=== PATIENT | male | born 1980 | race Caucasian/White ===

== ENCOUNTER 2019-04-09 22:04 | Emergency (ER) | payer BC ==
[~2019-04-09] VITALS: Ht 180.3 cm; Wt 108.9 kg
[~2019-04-09 22:04] MED LIST: AMLO5TAB10 PO; ATOR20TA58 PO; HYDR12.58 PO; LISI10TA2 PO; METO50TA29 PO
[2019-04-09] MEDS ORDERED: fentaNYL PF VIAL 100 MCG/2 ML VIAL IVP ONE ×2 (22:30→23:30)
[2019-04-09] MEDS ORDERED: ONDANSETRON PF 4 MG/2 ML VIAL. IV ONE (22:30)
--- NOTE | 2019-04-09 22:34 | PHYS DOC ---
Past Medical History Past Medical History: High Cholesterol, Hypertension, Other Additional Past Medical Histor: ALCOHOL ABUSE, Past Surgical History: No Surgical History Alcohol Use: Heavy Drug Use: None Adult General Chief Complaint Chief Complaint: MECHANICAL FALL HPI HPI Patient is a 38-year-old male who presents after a ground-level fall at home. Patient was carrying a water troughs and lost his balance, tripped and fell into bathtub, landing on his right arm. Patient now complains of pain that radiates from his right shoulder down through his elbow and just below the elbow. He rates pain as severe. He states the pain is worsened if he tries to move the right arm. He denies any chest pain or shortness of breath. He states that nothing improves the pain. Injury occurred just prior to arrival.[] Review of Systems Review of Systems Constitutional: Denies fever or chills [] Respiratory: Denies cough or shortness of breath [] Cardiovascular: No additional information not addressed in HPI [] GI: Denies abdominal pain, nausea, vomiting or diarrhea [] Musculoskeletal: Complains of right shoulder and arm pain [] Integument: Denies rash or skin lesions [] Neurologic: Denies headache, focal weakness or sensory changes [] All other systems were reviewed and found to be within normal limits, except as documented in this note. Current Medications Current Medications Current Medications Medications (Trade) Dose Ordered Sig/Eriberto Start Time Stop Time Status Last Admin Dose Admin Fentanyl Citrate (Fentanyl 2ml Vial) 50 mcg 1X ONCE 04/09/19 23:30 04/09/19 23:31 DC 04/09/19 23:25 50 MCG Ondansetron HCl (Zofran) 4 mg 1X ONCE 04/09/19 22:30 04/09/19 22:31 DC 04/09/19 22:25 4 MG Allergies Allergies Allergies Coded Allergies Type Severity Reaction Last Updated Verified No Known Drug Allergies 09/27/14 No Physical Exam Physical Exam Constitutional: Well developed, well nourished, no acute distress, non-toxic appearance. [] HENT: Normocephalic, atraumatic, bilateral external ears normal, oropharynx moist, no oral exudates, nose normal. [] Eyes: PERRLA, EOMI, conjunctiva normal, no discharge. [] Neck: Normal range of motion, no tenderness, supple, no stridor. [] Cardiovascular: Regular rate and rhythm[] Lungs & Thorax: Bilateral breath sounds clear to auscultation [] Abdomen: Bowel sounds normal, soft, no tenderness. [] Skin: Warm, dry, no erythema, no rash. [] Extremities: Right upper extremity demonstrates diffuse tenderness to palpation from the shoulder through the elbow with decreased range of motion due to pain. No obvious deformity noted on exam. [] Neurologic: Alert and oriented X 3, no focal deficits noted. [] Current Patient Data Vital Signs Vital Signs Date Time Temp Pulse Resp B/P (MAP) Pulse Ox O2 Delivery O2 Flow Rate FiO2 04/09/19 23:25 97 Room Air 04/09/19 22:32 97.8 109 18 123/85 (98) 97.8 EKG EKG [] Radiology/Procedures Radiology/Procedures [] Impressions: PROCEDURE: ELBOW RIGHT 3V Left shoulder 3 views: Reason for examination: Fell. No fracture or dislocation is seen. The bone density is normal. No abnormal periosteal reaction is seen. Joint spaces are maintained. IMPRESSION: No acute bony abnormality at the right shoulder. Right forearm 2 views: There is a linear lucency seen on lateral projection only and probably associated with the coronoid process of the ulna. No other site of fracture seen. Joint spaces are maintained. There does appear to be a joint effusion at the elbow. Distal radius and ulnar appear to be intact no gross bony abnormality seen at the wrist joint. IMPRESSION: Linear lucency suspicious of fracture seen proximally in the region of the coronoid process of the ulna with joint effusion. Right humerus 2 views: No fracture seen at the humerus. Bone density is normal. No abnormal periosteal reaction is seen. Shoulder and elbow joint spaces are maintained. IMPRESSION: No acute bony abnormality seen at the humerus. Right elbow 3 views: There is a fracture at the coronoid process of the ulna. The radial head and distal humerus appear to be intact. Joint space is maintained. IMPRESSION: Fracture at the coronoid process of the proximal ulna. Joint effusion. Electronically signed by: Lizette Keys MD (04/09/2019 11:23 PM) [id number] DICTATED and SIGNED BY: LIZETTE KEYS MD DATE: 04/09/19 2322 Course & Med Decision Making Course & Med Decision Making Pertinent Labs and Imaging studies reviewed. (See chart for details) Results of imaging studies reviewed with patient and family. Patient placed in a long-arm posterior splint by ER medic and patient reevaluated post splinting. Good fit and alignment are noted with excellent capillary refill. Patient placed in right arm sling. Dragon Disclaimer Dragon Disclaimer This electronic medical record was generated, in whole or in part, using a voice recognition dictation system. Departure Departure Impression: Primary Impression: Fracture of coronoid process of right ulna Disposition: HOME, SELF-CARE Condition: STABLE Referrals: SHERIE HERNANDEZ MD (PCP) PATTIE CARRILLO MD Patient Instructions: Elbow Fracture, Simple Scripts Naproxen (NAPROSYN) 500 Mg Tablet 1 TAB PO BID PRN for PAIN, #20 TAB 0 Refills Prov: SIMONE ZAUZETA Jr. DO 04/10/19 Hydrocodone/Apap 5-325 (NORCO 5-325 TABLET) 1 Each Tablet 1-2 EACH PO PRN Q6HRS PRN for PAIN, #15 as needed for pain Prov: SIMONE ZAZUETA Jr. DO 04/10/19 Problem Qualifiers Primary Impression: Fracture of coronoid process of right ulna Encounter type: initial encounter Fracture type: closed Fracture alignment: nondisplaced Qualified Codes: S52.044A - Nondisplaced fracture of coronoid process of right ulna, initial encounter for closed fracture SIMONE ZAZUETA Jr. DO Apr 09, 2019 22:34
--- NOTE | 2019-04-09 23:27 | RAD ---
Left shoulder 3 views: Reason for examination: Fell. No fracture or dislocation is seen. The bone density is normal. No abnormal periosteal reaction is seen. Joint spaces are maintained. IMPRESSION: No acute bony abnormality at the right shoulder. Right forearm 2 views: There is a linear lucency seen on lateral projection only and probably associated with the coronoid process of the ulna. No other site of fracture seen. Joint spaces are maintained. There does appear to be a joint effusion at the elbow. Distal radius and ulnar appear to be intact no gross bony abnormality seen at the wrist joint. IMPRESSION: Linear lucency suspicious of fracture seen proximally in the region of the coronoid process of the ulna with joint effusion. Right humerus 2 views: No fracture seen at the humerus. Bone density is normal. No abnormal periosteal reaction is seen. Shoulder and elbow joint spaces are maintained. IMPRESSION: No acute bony abnormality seen at the humerus. Right elbow 3 views: There is a fracture at the coronoid process of the ulna. The radial head and distal humerus appear to be intact. Joint space is maintained. IMPRESSION: Fracture at the coronoid process of the proximal ulna. Joint effusion. Electronically signed by: Lizette Nieto MD (04/09/2019 11:23 PM) [id number]
[2019-04-10] MEDS ORDERED: HYDR-3164 PO (00:29)
[2019-04-10] MEDS ORDERED: NAPR-683 PO (00:29)
[2019-04-10] MEDS ORDERED: fentaNYL PF VIAL 100 MCG/2 ML VIAL IVP ONE (01:00)
[2019-04-10 01:13] VITALS: BP 109/68
== END 2019-04-10 01:25 | disposition home or self-care (01) ==
LOC: ER 22:04
DX: E78.00 Pure hypercholesterolemia, unspecified (principal); S52.044A Nondisplaced fracture of coronoid process of right ulna, initial encounter for closed fracture; I10 Essential (primary) hypertension; F10.20 Alcohol dependence, uncomplicated; Y90.9 Presence of alcohol in blood, level not specified; W18.2XXA Fall in (into) shower or empty bathtub, initial encounter; Y93.89 Activity, other specified; Y92.009 Unspecified place in unspecified non-institutional (private) residence as the place of occurrence of the external cause; Y99.8 Other external cause status
CPT/HCPCS: 73030; 73060; 73080; 73090; 96374; 96375; 96376; 99284; J2405; J3010

== ENCOUNTER 2019-08-12 12:32 | Emergency (ER) | payer BC ==
[~2019-08-12] VITALS: Ht 180.3 cm; Wt 110.0 kg
[~2019-08-12 12:32] MED LIST changes: +HYDR-3164 PO; +NAPR-683 PO
[2019-08-12 13:30] VITALS: BP 169/98
[2019-08-12] MEDS ORDERED: HYDROcodone/APAP 5/325MG 1 TAB TABLET PO ONE (14:15)
[2019-08-12] MEDS ORDERED: ORPHENADRINE CITRATE 60 MG/2 ML VIAL. IM ONE (14:15)
--- NOTE | 2019-08-12 14:16 | PHYS DOC ---
Past Medical History Past Medical History: Hypertension Additional Past Medical Histor: ALCOHOL ABUSE, Past Surgical History: No Surgical History Smoking Status: Current Every Day Smoker Alcohol Use: Occasionally Drug Use: None Adult General Chief Complaint Chief Complaint: KNEE INJURY HPI HPI Patient is a 39 year old male who presents with states he tripped and fell in his house last night and landed on his right knee. Patient has anterior right knee pain only. Patient rates pain 10 out 10 and states he has not taken anything for the pain. Review of Systems Review of Systems Musculoskeletal: Denies back pain. Right knee joint pain [] All other systems were reviewed and found to be within normal limits, except as documented in this note. Current Medications Current Medications Current Medications Medications (Trade) Dose Ordered Sig/Eriberto Start Time Stop Time Status Last Admin Dose Admin Acetaminophen/ Hydrocodone Bitart (Lortab 5/325) 1 tab 1X ONCE 08/12/19 14:15 08/12/19 14:17 DC 08/12/19 14:21 1 TAB Orphenadrine Citrate (Norflex) 60 mg 1X ONCE 08/12/19 14:15 08/12/19 14:17 DC 08/12/19 14:21 60 MG Allergies Allergies Allergies Coded Allergies Type Severity Reaction Last Updated Verified tramadol Allergy Unknown 08/12/19 Yes Physical Exam Physical Exam Constitutional: Well developed, well nourished, no acute distress, non-toxic appearance. [] HENT: Normocephalic, atraumatic, bilateral external ears normal, oropharynx moist, no oral exudates, nose normal. [] Eyes: PERRLA, EOMI, conjunctiva normal, no discharge. [] Neck: Normal range of motion, no tenderness, supple, no stridor. [] Cardiovascular:Heart rate regular rhythm, no murmur [] Lungs & Thorax: Bilateral breath sounds clear to auscultation [] Abdomen: Bowel sounds normal, soft, no tenderness, no masses, no pulsatile mass es. [] Skin: Warm, dry, no erythema, no rash. [] Back: No tenderness, no CVA tenderness. [] Extremities: right knee tenderness, no cyanosis, no clubbing, right knee ROM limiteddue to pain, no edema. [] Neurologic: Alert and oriented X 3, normal motor function, normal sensory function, no focal deficits noted. [] Psychologic: Affect normal, judgement normal, mood normal. [] Current Patient Data Vital Signs Vital Signs Date Time Temp Pulse Resp B/P (MAP) Pulse Ox O2 Delivery O2 Flow Rate FiO2 08/12/19 14:21 20 99 Room Air 08/12/19 13:30 98.1 92 169/98 (121) 98.1 EKG EKG [] Radiology/Procedures Radiology/Procedures [] Impressions: [facility] [address] [place] [address] IMAGING REPORT Signed PATIENT: PATTIE RUGGIERO ACCOUNT: [id number] : 1980 LOCATION: ER AGE: 39 SEX: M EXAM STATUS: REG ER ORD. PHYSICIAN: MATIAS CUENCA APRN REASON: fall,PT STATES FELL LAST NIGHT LANDING ON KNEE, PAINFUL TO AMBULATE PROCEDURE: KNEE RIGHT 4V Right knee 4 views. HISTORY: Fall, pain right knee, mild pain to ambulate 4 views were taken of the right knee. There is not evidence of an acute fracture or osseous abnormality. There is no joint effusion. IMPRESSION: 1. No acute fracture noted in the right knee. Electronically signed by: Jan Garcia MD (08/12/2019 2:42 PM) [id number] DICTATED and SIGNED BY: JAN GARCIA MD DATE: 08/12/19 1442 Course & Med Decision Making Course & Med Decision Making Pertinent Labs and Imaging studies reviewed. (See chart for details) Patient has slight movement in the joint there is no swelling or bruising or deformity. Patient states he cannot bear weight on it. Pedal pulses are present. No swelling in extremities. No redness or heat to the joint. No laxity in the joint. Range of motion is very limited due to pain. Patient denies any numbness or tingling, coldness or skin color change. Skin pink warm and dry. [] Dragon Disclaimer Dragon Disclaimer This electronic medical record was generated, in whole or in part, using a voice recognition dictation system. Departure Departure Impression: Primary Impression: Knee pain, right Additional Impression: Fall Disposition: 01 HOME, SELF-CARE Condition: STABLE Referrals: Lydia INGRAM MD (PCP) Patient Instructions: Contusion, Fall Prevention and Home Safety Additional Instructions: Follow up with primary care provider. Take medication as prescribed. Scripts Hydrocodone/Apap 5-325 (NORCO 5-325 TABLET) 1 Each Tablet 1 TAB PO PRN Q6HRS PRN for PAIN, #6 TAB 0 Refills Prov: MATIAS CUENCA WARP COILER 08/12/19 Problem Qualifiers Primary Impression: Knee pain, right Chronicity: acute Qualified Codes: M25.561 - Pain in right knee Additional Impression: Fall Encounter type: initial encounter Qualified Codes: W19.XXXA - Unspecified fall, initial encounter MATIAS CUENCA WARP COILER Aug 12, 2019 14:16
--- NOTE | 2019-08-12 14:45 | RAD ---
Right knee 4 views. HISTORY: Fall, pain right knee, mild pain to ambulate 4 views were taken of the right knee. There is not evidence of an acute fracture or osseous abnormality. There is no joint effusion. IMPRESSION: 1. No acute fracture noted in the right knee. Electronically signed by: Jan Garcia MD (08/12/2019 2:42 PM) [id number]
[2019-08-12] MEDS ORDERED: HYDR-3164 PO (14:50)
== END 2019-08-12 15:00 | disposition home or self-care (01) ==
LOC: ER 12:32
DX: G89.11 Acute pain due to trauma (principal); M25.561 Pain in right knee; I10 Essential (primary) hypertension; F17.200 Nicotine dependence, unspecified, uncomplicated; F10.10 Alcohol abuse, uncomplicated; Z88.6 Allergy status to analgesic agent; W18.39XA Other fall on same level, initial encounter; Y93.89 Activity, other specified; Y92.099 Unspecified place in other non-institutional residence as the place of occurrence of the external cause; Y99.8 Other external cause status
CPT/HCPCS: 73564; 96372; 99284; J2360

== ENCOUNTER 2020-02-06 19:24 | Emergency (ER) | payer BC ==
[~2020-02-06] VITALS: Ht 180.3 cm; Wt 100.0 kg
[2020-02-06 20:13] LABS: BASO % 1 % (0-3); EOS % 0 % (0-3); HEMATOCRIT 44.4 % (39.0-53.0); HEMOGLOBIN 15.4 g/dL (13.0-17.5); LYMPH # 0.7 x10^3/uL (1.0-4.8); LYMPH % 8 % (24-48); MEAN CORPUSCULAR HEMOGLOBIN 31 pg (25-35); MEAN CORPUSCULAR HGB CONC 35 g/dL (31-37); MEAN CORPUSCULAR VOLUME 90 fL (79-100); MONO # 0.6 x10^3/uL (0.0-1.1); MONO % 7 % (0-9); NEUT # 7.1 x10^3/uL (1.8-7.7); NEUT % 84 % (31-73); PLATELET COUNT 251 x10^3/uL (140-400); RED BLOOD COUNT 4.91 x10^6/uL (4.30-5.70); RED CELL DISTRIBUTION WIDTH 14.5 % (11.5-14.5); WHITE BLOOD COUNT 8.5 x10^3/uL (4.0-11.0)
--- NOTE | 2020-02-06 20:22 | PHYS DOC ---
Past Medical History Past Medical History: Hypertension Additional Past Medical Histor: ALCOHOL ABUSE, Past Surgical History: No Surgical History Smoking Status: Current Every Day Smoker Alcohol Use: Occasionally Drug Use: None General Adult EDM: Chief Complaint: SEIZURE HPI: HPI: Patient is a 39 year old male who presents for evaluation for generalized tonic-clonic seizure. Patient has had 2 other prior seizures but is not on any seizure medicines. Patient denies any recent illnesses and says she found having generalized tonic-clonic seizure activity last about 5 minutes. Paramedics came patient did not transfer that time patient wait a couple hours before arriving in the ER. Patient denies any complaints at this time other than abrasion on his tongue. Review of Systems: Review of Systems: Constitutional: Denies fever or chills. [] Eyes: Denies change in visual acuity. [] HENT: Denies nasal congestion or sore throat. [] Respiratory: Denies cough or shortness of breath. [] Cardiovascular: Denies chest pain or edema. [] GI: Denies abdominal pain, nausea, vomiting, bloody stools or diarrhea. [] : Denies dysuria. [] Musculoskeletal: Denies back pain or joint pain. [] Integument: Denies rash. [] Neurologic: Denies headache, focal weakness or sensory changes. [] Endocrine: Denies polyuria or polydipsia. [] Lymphatic: Denies swollen glands. [] Psychiatric: Denies depression or anxiety. [] Heart Score: Risk Factors: Risk Factors: DM, Current or recent (<one month) smoker, HTN, HLP, family history of CAD, obesity. Risk Scores: Score 0 - 3: 2.5% MACE over next 6 weeks - Discharge Home Score 4 - 6: 20.3% MACE over next 6 weeks - Admit for Clinical Observation Score 7 - 10: 72.7% MACE over next 6 weeks - Early Invasive Strategies Allergies: Allergies: Allergies Coded Allergies Type Severity Reaction Last Updated Verified tramadol Allergy Unknown 08/12/19 Yes Physical Exam: PE: Constitutional: Well developed, well nourished, no acute distress, non-toxic appearance. [] HENT: Normocephalic, atraumatic, bilateral external ears normal, abrasion on the left side of the tongue nose normal. [] Eyes: PERRLA, EOMI, conjunctiva normal, no discharge. [] Neck: Normal range of motion, no tenderness, supple, no stridor. [] No meningeal signs Cardiovascular:Heart rate regular rhythm, no murmur [] Lungs & Thorax: Bilateral breath sounds clear to auscultation [] Abdomen: Bowel sounds normal, soft, no tenderness, no masses, no pulsatile masses. [] Skin: Warm, dry, no erythema, no rash. [] Back: No tenderness, no CVA tenderness. [] Extremities: No tenderness, no cyanosis, no clubbing, ROM intact, no edema. [] Neurologic: Alert and oriented X 3, normal motor function, normal sensory function, no focal deficits noted. [] Psychologic: Affect normal, judgement normal, mood normal. [] Current Patient Data: Labs: Laboratory Tests Test 02/06/20 20:00 White Blood Count 8.5 x10^3/uL (4.0-11.0) Red Blood Count 4.91 x10^6/uL (4.30-5.70) Hemoglobin 15.4 g/dL (13.0-17.5) Hematocrit 44.4 % (39.0-53.0) Mean Corpuscular Volume 90 fL (79-100) Mean Corpuscular Hemoglobin 31 pg (25-35) Mean Corpuscular Hemoglobin Concent 35 g/dL (31-37) Red Cell Distribution Width 14.5 % (11.5-14.5) Platelet Count 251 x10^3/uL (140-400) Neutrophils (%) (Auto) 84 % (31-73) H Lymphocytes (%) (Auto) 8 % (24-48) L Monocytes (%) (Auto) 7 % (0-9) Eosinophils (%) (Auto) 0 % (0-3) Basophils (%) (Auto) 1 % (0-3) Neutrophils # (Auto) 7.1 x10^3/uL (1.8-7.7) Lymphocytes # (Auto) 0.7 x10^3/uL (1.0-4.8) L Monocytes # (Auto) 0.6 x10^3/uL (0.0-1.1) Eosinophils # (Auto) 0.0 x10^3/uL (0.0-0.7) Basophils # (Auto) 0.0 x10^3/uL (0.0-0.2) Laboratory Tests 02/06/20 20:00 Vital Signs: Vital Signs Date Time Temp Pulse Resp B/P (MAP) Pulse Ox O2 Delivery O2 Flow Rate FiO2 02/06/20 19:42 98.3 98 18 164/106 (125) 100 Room Air 98.3 EKG: EKG: [] EKG interpreted by me normal sinus rhythm with a rate of 96 left axis deviation nonspecific ST changes first-degree AV block Radiology/Procedures: Radiology/Procedures: [] Course & Med Decision Making: Course & Med Decision Making Pertinent Labs and Imaging studies reviewed. (See chart for details) [] 39-year-old male presents with a seizure. Patient has never seen a neurologist but has had multiple seizures over the last several years. I discus sed the case with Dr. Hill from neurology and we agreed to start the patient on Keppra. Patient is clinically stable and will be sent home on Keppra 500 twice daily. No seizure activity noted while observed in ER. Dragon Disclaimer: Dragon Disclaimer: This electronic medical record was generated, in whole or in part, using a voice recognition dictation system. Departure Departure Impression: Primary Impression: Seizure Condition: STABLE Referrals: Lydia INGRAM MD (PCP) DIGNA PAK MD 2-3 DAYS Patient Instructions: Seizure, Adult Additional Instructions: EMERGENCY DEPARTMENT GENERAL DISCHARGE INSTRUCTIONS THANK YOU for coming to [facility] Emergency Department (ED) toda y and trusting us with your care. We trust that you had a positive experience in our Emergency Department. If you wish to speak to the department Management you can contact the head of commission department at . YOUR FOLLOW UP INSTRUCTIONS ARE FOLLOWS: Do you have a private doctor? If you do not have a private doctor, please ask for a resource list of physicians or clinics that may be able to assist you with follow up care. The Emergency Physician has interpreted your x-rays. The X-ray specialist will also review them. If there is a change in the findings you will be notified in 48 hours when at all possible. A lab test or lab culture may have been done, your results will be reviewed and you will be notified if you need a change in treatment. ADDITIONAL INSTRUCTIONS AND INFORMATION Your care today has been supervised by a physician who is specially trained in emergency care. Many problems require more than one evaluation for a complete diagnosis and treatment. We recommend that you schedule your follow up appointment as recommended to ensure complete treatment of your illness or injury. If you are unable to obtain follow up care and continue to have a problem, or if your condition worsens we recommend that you return to the ED. We are not able to safely determine your condition over the phone nor are we able to give sound medical advice over the phone. For these safety reasons, if you call for medical advice we will ask you to come to the ED for further evaluation If you have any questions regarding these discharge instructions please call the ED at . SAFETY INFORMATION In the interest of safety, wellness, and injury prevention; we encourage you to wear your seatbelt, if you smoke; quit smoking, and we encourage your family to use protective helmet for bicycling and other sporting events that present an increased risk for head injury. IF YOUR SYMPTOMS WORSEN OR NEW SYMPTOMS DEVELOP, OR YOU HAVE CONCERNS ABOUT YOUR CONDITION; OR IF YOUR CONDITION WORSENS WHILE YOU ARE WAITING FOR YOUR FOLLOW UP APPOINTME NT; EITHER CONTACT YOUR PRIMARY CARE DOCTOR, THE PHYSICIAN WHOSE NAME AND NUMBER YOU WERE GIVEN, OR RETURN TO THE ED IMMEDIATELY. Scripts Levetiracetam (KEPPRA) 500 Mg Tablet 1 TAB PO BID for 30 Days, #60 TAB 0 Refills Prov: SANDRO VINES MD 02/06/20 Justicifation of Admission Dx: Justifications for Admission: Justification of Admission Dx: N/A SANDRO VINES MD Feb 06, 2020 20:22
[2020-02-06 20:24] LABS: CALCIUM 8.8 mg/dL (8.5-10.1); CREATININE 1.1 mg/dL (0.7-1.3); GFR 75.3; POTASSIUM 3.8 mmol/L (3.5-5.1)
[2020-02-06] MEDS ORDERED: LEVE500T56 PO (21:52)
[2020-02-06] MEDS ORDERED: levETIRAcetam 1,000 MG in IV DEXTROSE 5% 100ML 100 ML IV ONE (22:00)
[2020-02-06 22:47] VITALS: BP 135/77
--- NOTE | 2020-02-07 04:35 | EKG ---
[facility] [address] [place] [address] Test Date: 2020-02-06 Test Time: 20:20:15 Pat Name: PATTIE RUGGIERO Department: Room: Gender: M [employer] Worker: : 1980 Requested By: SANDRO VINES Order Number: [id number] Reading MD: Measurements Intervals [place] Rate: 96 P: 11 WV: 216 QRS: -4 QRSD: 82 T: 52 QT: 334 QTc: 423 Interpretive Statements SINUS RHYTHM PROLONGED WV INTERVAL LEFTWARD AXIS QRS(T) CONTOUR ABNORMALITY CONSIDER INFERIOR MYOCARDIAL DAMAGE ABNORMAL ECG RI6.01 No previous ECG available for comparison
== END 2020-02-06 22:46 | disposition home or self-care (01) ==
LOC: ER 19:24
DX: G40.89 Other seizures (principal); I10 Essential (primary) hypertension; F17.200 Nicotine dependence, unspecified, uncomplicated; Z88.8 Allergy status to other drugs, medicaments and biological substances
CPT/HCPCS: 36415; 80048; 85025; 93005; 96365; 99284; J1953; J7060

== ENCOUNTER 2021-02-15 14:44 | Emergency (ER) | payer BC ==
[~2021-02-15] VITALS: Ht 167.6 cm; Wt 115.3 kg
[~2021-02-15 14:44] MED LIST changes: +AMLO-186 PO; -AMLO5TAB10 PO; +LEVE500T56 PO; +LISI10TA16 PO; -LISI10TA2 PO
[2021-02-15 18:05] LABS: BILIRUBIN,URINE NEGATIVE (NEG); CLARITY,URINE CLEAR; COLOR,URINE YELLOW; NITRITE,URINE NEGATIVE (NEG); PH,URINE 5.5 (<5.0-8.0); PROTEIN,URINE NEGATIVE (NEG-TRACE); UROBILINOGEN,URINE 0.2 mg/dL (0.2 mg/dL)
[2021-02-15 18:15] LABS: BACTERIA,URINE 0 /HPF (0-FEW)
[2021-02-15 18:16] LABS: RBC,URINE 0 /HPF (0-2); WBC,URINE 0 /HPF (0-4)
[2021-02-15] MEDS ORDERED: LIDO1ADH78 TP (18:50)
[2021-02-15] MEDS ORDERED: CYCL10TA2 PO (18:50)
--- NOTE | 2021-02-15 18:53 | PHYS DOC ---
Past Medical History Past Medical History: Hypertension Additional Past Medical Histor: ALCOHOL ABUSE Past Surgical History: No Surgical History Smoking Status: Current Every Day Smoker Alcohol Use: Occasionally Drug Use: None General Adult EDM: Chief Complaint: BACK PAIN - NO INJURY HPI: HPI: 40-year-old male past medical history of hypertension, reports medication noncompliance, presents the ED with complaints of "I've have had this problem for years," complains of left-sided low back pain that's radiates down the left leg that started today while bending forward at work, is requesting a work note. Denies any blunt trauma or falls. Covid vaccination was completed in August. No relief with Tylenol or ibuprofen [id number]. Review of Systems: Review of Systems: Constitutional: Denies fever or chills. [] Eyes: Denies change in visual acuity. [] HENT: Denies nasal congestion or sore throat. [] Respiratory: Denies cough or shortness of breath. [] Cardiovascular: Denies chest pain or edema. [] GI: Denies nausea, vomiting, ] : Denies urinary or bowel retention or incontinence or saddle anesthesia Musculoskeletal: Denies midline back pain or cva tenderness Integument: Denies rash or diaphoresis Neurologic: Denies headache, focal weakness or sensory changes. [] Endocrine: Denies polyuria or polydipsia. [] Lymphatic: Denies swollen glands. [] Psychiatric: Denies depression or anxiety. [] Heart Score: C/O Chest Pain: No Risk Factors: Risk Factors: DM, Current or recent (<one month) smoker, HTN, HLP, family history of CAD, obesity. Risk Scores: Score 0 - 3: 2.5% MACE over next 6 weeks - Discharge Home Score 4 - 6: 20.3% MACE over next 6 weeks - Admit for Clinical Observation Score 7 - 10: 72.7% MACE over next 6 weeks - Early Invasive Strategies Allergies: Allergies: Allergies Coded Allergies Type Severity Reaction Last Updated Verified tramadol Allergy Unknown 08/12/19 Yes Physical Exam: PE: Constitutional: Well developed, well nourished, no acute distress, non-toxic appearance. HENT: Normocephalic, atraumatic, Eyes: EOMI, conjunctiva normal, no discharge. Neck: Normal range of motion, supple, Cardiovascular: S1/2 present, regular rhythm Lungs & Thorax: Speaking in full sentences, bilateral equal chest rise, no tachypnea or increased work of breathing Skin: Warm, dry, no erythema, no rash. [] Back: No midline step offs or tenderness, no CVA tenderness, left buttock and SI joint pain, mildly antalgic gait Extremities: No tenderness, no cyanosis, no lower extremity edema Neurologic: Alert and oriented X 3, normal motor function, normal sensory fu nction, no focal deficits noted. [] Psychologic: Affect normal, judgement normal, mood normal. [] Current Patient Data: Labs: Laboratory Tests Test 02/15/21 17:55 Urine Collection Type Unknown Urine Color Yellow Urine Clarity Clear Urine pH 5.5 (<5.0-8.0) Urine Specific [place] 1.020 (1.000-1.030) Urine Protein Negative mg/dL (NEG-TRACE) Urine Glucose (UA) Negative mg/dL (NEG) Urine Ketones (Stick) Negative mg/dL (NEG) Urine Blood Negative (NEG) Urine Nitrite Negative (NEG) Urine Bilirubin Negative (NEG) Urine Urobilinogen Dipstick 0.2 mg/dL (0.2 mg/dL) Urine Leukocyte Esterase Negative (NEG) Urine RBC 0 /HPF (0-2) Urine WBC 0 /HPF (0-4) Urine Squamous Epithelial Cells Occ /LPF Urine Bacteria 0 /HPF (0-FEW) Urine Mucus Slight /LPF Vital Signs: Vital Signs Date Time Temp Pulse Resp B/P (MAP) Pulse Ox O2 Delivery O2 Flow Rate FiO2 02/15/21 15:22 98.3 85 12 166/114 (125) 100 Room Air 98.3 EKG: EKG: [] Radiology/Procedures: Radiology/Procedures: [] Course & Med Decision Making: Course & Med Decision Making Pertinent Labs and Imaging studies reviewed. (See chart for details) Concern for acute on chronic left sided sciatica with no neurologic deficits. Will treat conservatively with rice instructions and muscle relaxers. Will discharge home with strict ED return precautions were given for saddle anesthesia, trauma, urinary or bowel retention or incontinence or neurologic deficits including weakness or lack of sensation. Encouraged urgent outpatient follow-up with PMD and Ortho. Life-threatening processes were considered but are low suspicion at this time, given history, physical exam and ED workup. Pt was educated on all prescription medications and adverse effects. All patient's questions were answered and pt was stable at time of discharge. Life/limb-threatening differential includes but is not limited to, aortic dissection/aneurysm, cauda equina syndrome, transverse myelitis, spinal c ord/epidural compression syndromes, discitis, spinal stenosis, epidural abscess or hematoma, osteomyelitis, disc herniation, surgical abdomen, stable or unstable fracture, renal/ureteral colic, sepsis, meningitis, musculoskeletal injury, traumatic injury, intraabdominal/retroperitoneal or pelvic bleeding. I have spoken with the patient and/or caregivers. I explained the patient's condition, diagnoses and treatment plan based on the information available to me at this time. I have answered the patient and/or caregiver's questions and addressed any concerns. The patient and/or caregivers have a good understanding of patient's diagnosis, condition and treatment plan as can be expected at this point. Vital signs have been stable. Patient's condition is stable and appropriate for discharge from the emergency department. Patient will pursue further outpatient evaluation with primary care physician or other designated or consulting physician as outlined in the discharge instructions. The patient and/or caregivers are agreeable to this plan of care and follow-up instructions have been explained in detail. The patient and/or caregivers have received these instructions in written form and have expressed an understanding of the discharge instructions. The patient and/or caregivers are aware that any significant change of condition or worsening of symptoms should prompt immediate return to this or the closest emergency department or call to 911. Maurilio Disclaimer: Maurilio Disclaimer: This electronic medical record was generated, in whole or in part, using a voice recognition dictation system. Departure Departure Impression: Primary Impression: Left sided sciatica Additional Impression: Uncontrolled hypertension Disposition: 01 HOME / SELF CARE / HOMELESS Condition: STABLE Referrals: Lydia INGRAM MD (PCP) Follow-up with your primary care physician in 24 to 48 hours for blood pressure OR FOLLOW UP WITH FAMILY MEDICINE: [address], [address] [place] [address] Patient Instructions: Hypertension, Sciatica Additional Instructions: FOLLOW UP WITH ORTHOPEDICS: FOR DEFINITIVE MANAGEMENT of back pain Orthopaedic Sports Medicine Orthopaedic Surgery [facility] [address], [address] [place] [address] OR [facility] [address] , [place] [address] EMERGENCY DEPARTMENT GENERAL DISCHARGE INSTRUCTIONS Thank you for coming to [facility] Emergency Department (ED) today and trusting us with you care. We trust that you had a positive experience in our Emergency Department. If you wish to speak to the department management, you may call the Director at [phone]. YOUR FOLLOW UP INSTRUCTIONS ARE FOLLOWS: 1. Do you have a private Doctor? If you do not have a private doctor, please ask for a resource list of physicians or clinics that may be able to assist you with follow up care. ADDITIONAL INSTRUCTIONS AND INFORMATION: 1. Your care today has been supervised by a physician who is specially trained in emergency care. Many problems require more than one evaluation for a complete diagnosis and treatment. We recommend that you schedule your follow up appointment as recommended to ensure complete treatment of you illness or injury. If you are unable to obtain follow up care and continue to have a problem, or if your condition worsens, we recommend that you return to the ED. 2. We are not able to safely determine your condition over the phone nor are we able to give sound medical advice over the phone. For these safety reasons, if you call for medical advice we will ask you to come to the ED for further evaluation. 3. If you have any questions regarding these discharge instructions please call the ED at [phone]. SAFETY INFORMATION: In the interest of safety, wellness, and injury prevention; we encourage you to wear your sealbelt, if you smoke; quite smoking, and we encourage family to use a protective helmet for bicycling and other sporting events that present an increased risk for head injury. IF YOUR SYMPTOMS WORSEN OR NEW SYMPTOMS DEVELOP, OR YOU HAVE CONCERNS ABOUT YOUR CONDITION; OR IF YOUR CONDITION WORSENS WHILE YOU ARE WAITING FOR YOUR FOLLOW UP APPOINTMENT; EITHER CONTACT YOUR PRIMARY CARE DOCTOR, THE PHYSICIAN WHOSE NAME AND NUMBER YOU WERE GIVEN, OR RETURN TO THE ED IMMEDIATELY. Scripts Cyclobenzaprine Hcl (CYCLOBENZAPRINE HCL) 10 Mg Tablet 1 TAB PO TID, #21 TAB Prov: LORI COE DO 02/15/21 Lidocaine (Lido Micah) 1 Each Adh..patch 1 EACH TP DAILY for 5 Days, #5 PATCH Apply 1 patch for 12 hours, remove for another 12 hours. May repeat, 1 patch per day as instructed above. Prov: LORI COE DO 02/15/21 LORI COE DO Feb 15, 2021 18:53
[2021-02-15 19:15] VITALS: BP 160/110
== END 2021-02-15 19:20 | disposition home or self-care (01) ==
LOC: ER 14:44
DX: M54.42 Lumbago with sciatica, left side (principal); I10 Essential (primary) hypertension; F17.200 Nicotine dependence, unspecified, uncomplicated; Z88.6 Allergy status to analgesic agent
CPT/HCPCS: 81001; 99285-25

== ENCOUNTER 2021-06-28 18:00 | Emergency (ER) | payer BC ==
[~2021-06-28 18:00] MED LIST changes: +CYCL10TA19 PO; +LIDO1ADH78 TP
== END 2021-06-28 18:31 | disposition left against medical advice (07) ==
LOC: ER 18:00
DX: I10 Essential (primary) hypertension (principal); Z53.21 Procedure and treatment not carried out due to patient leaving prior to being seen by health care provider

== ENCOUNTER 2021-08-14 01:55 | Emergency (ER) | payer BC ==
[~2021-08-14] VITALS: Ht 180.3 cm; Wt 104.5 kg
--- NOTE | 2021-08-14 02:50 | ED.ADGEN ---
Past Medical History Past Medical History: Hypertension Additional Past Medical Histor: ALCOHOL ABUSE Past Surgical History: No Surgical History Smoking Status: Former Smoker Alcohol Use: Rarely Drug Use: None General Adult EDM: Chief Complaint: SEIZURE HPI: HPI: Patient is a 41 year old male coming in via EMS for a seizure episode. History provided by she states that she heard him start seizing and when she came in he is slumped over his chair was hitting his head on the wall. Does endorse a postictal phase. Patient has had 4 seizures in the past, last 1 2 years ago. Patient was initially hospitalized and started on antiepileptics but only took them for a month but did not get them refilled. Patient has also been out of his hypertensive medication for 1 month. He states he has had no new stressors or no sleep deprivation. Review of Systems: Review of Systems: All other systems within normal limits except for as noted in the HPI Current Medications: Current Medications Medications (Trade) Dose Ordered Sig/Eriberto Start Time Stop Time Status Last Admin Dose Admin Levetiracetam (Keppra) 1,500 mg 1X STAT 08/14/21 03:46 08/14/21 03:47 UNV Sodium Chloride 1,000 ml @ 1,000 mls/hr 1X ONCE 08/14/21 03:00 08/14/21 03:59 08/14/21 03:03 1,000 MLS/HR Allergies: Allergies: Allergies Coded Allergies Type Severity Reaction Last Updated Verified tramadol Allergy Intermediate 08/14/21 Yes Physical Exam: PE: Constitutional: Well developed, well nourished, no acute distress, non-toxic appearance. [] HENT: Normocephalic, atraumatic, bilateral external ears normal, nose normal. Tongue [] Eyes: PERRLA, conjunctiva normal, no discharge. [] Neck: No rigidity, supple, no stridor. [] Cardiovascular: Regular rate and rhythm, brisk cap refill [] Lungs & Thorax: Non labored symmetric respirations, no tachypnea or respiratory distress [] Abdomen: Soft, nondistended. Skin: Warm, dry, no erythema, no rash. [] Back: Unremarkable Extremities: No deformities, range of motion grossly intact, no lower extremity edema [] Neurologic: Alert and oriented X 3, no focal deficits noted. [] Psychologic: Affect normal, judgement normal, mood normal. [] Current Patient Data: Labs: Laboratory Tests Test 08/14/21 02:58 White Blood Count 7.9 x10^3/uL (4.0-11.0) Red Blood Count 4.52 x10^6/uL (4.30-5.70) Hemoglobin 13.8 g/dL (13.0-17.5) Hematocrit 40.7 % (39.0-53.0) Mean Corpuscular Volume 90 fL (79-100) Mean Corpuscular Hemoglobin 31 pg (25-35) Mean Corpuscular Hemoglobin Concent 34 g/dL (31-37) Red Cell Distribution Width 14.2 % (11.5-14.5) Platelet Count 248 x10^3/uL (140-400) Neutrophils (%) (Auto) 84 % (31-73) H Lymphocytes (%) (Auto) 7 % (24-48) L Monocytes (%) (Auto) 8 % (0-9) Eosinophils (%) (Auto) 1 % (0-3) Basophils (%) (Auto) 1 % (0-3) Neutrophils # (Auto) 6.6 x10^3/uL (1.8-7.7) Lymphocytes # (Auto) 0.5 x10^3/uL (1.0-4.8) L Monocytes # (Auto) 0.6 x10^3/uL (0.0-1.1) Eosinophils # (Auto) 0.1 x10^3/uL (0.0-0.7) Basophils # (Auto) 0.1 x10^3/uL (0.0-0.2) Sodium Level 143 mmol/L (136-145) Potassium Level 3.6 mmol/L (3.5-5.1) Chloride Level 106 mmol/L (98-107) Carbon Dioxide Level 26 mmol/L (21-32) Anion Gap 11 (6-14) Blood Urea Nitrogen 17 mg/dL (8-26) Creatinine 1.3 mg/dL (0.7-1.3) Estimated GFR (Cockcroft-Gault) 61.5 BUN/Creatinine Ratio 13 (6-20) Glucose Level 100 mg/dL (70-99) H Calcium Level 8.2 mg/dL (8.5-10.1) L Phosphorus Level 2.9 mg/dL (2.6-4.7) Magnesium Level 2.0 mg/dL (1.8-2.4) Total Bilirubin 0.2 mg/dL (0.2-1.0) Aspartate Amino Transferase (AST) 15 U/L (15-37) Alanine Aminotransferase (ALT) 20 U/L (16-63) Alkaline Phosphatase 105 U/L (46-116) Creatine Kinase 133 U/L (39-308) Myoglobin 131 ng/mL (16-96) H Total Protein 7.6 g/dL (6.4-8.2) Albumin 3.3 g/dL (3.4-5.0) L Albumin/Globulin Ratio 0.8 (1.0-1.7) L Ethyl Alcohol Level < 10 mg/dL (0-10) Laboratory Tests 08/14/21 02:58 Laboratory Tests 08/14/21 02:58 Vital Signs: Vital Signs Date Time Temp Pulse Resp B/P (MAP) Pulse Ox O2 Delivery O2 Flow Rate FiO2 08/14/21 02:00 98.1 112 16 172/101 (124) 100 Room Air 98.1 EKG: EKG: Sinus rhythm, heart rate 108 bpm, no ST elevation or depression, no ectopy, no QT prolongation [] Heart Score: C/O Chest Pain: No Risk Factors: Risk Factors: DM, Current or recent (<one month) smoker, HTN, HLP, family history of CAD, obesity. Risk Scores: Score 0 - 3: 2.5% MACE over next 6 weeks - Discharge Home Score 4 - 6: 20.3% MACE over next 6 weeks - Admit for Clinical Observation Score 7 - 10: 72.7% MACE over next 6 weeks - Early Invasive Strategies Radiology/Procedures: Radiology/Procedures: [facility] [address] [place] [address] IMAGING REPORT Signed PATIENT: PATTIE RUGGIERO ACCOUNT: [id number] : 1980 LOCATION: ER AGE: 41 SEX: M EXAM STATUS: REG ER ORD. PHYSICIAN: AIMEE SALDANA MD REASON: seizure PROCEDURE: CT HEAD WO CONTRAST CT HEAD/BRAIN WO Date: 08/14/2021 2:39 AM Clinical Indication: seizure Comparison: 06/27/2016. Technique: 5 mm axial tomographic images were obtained of the head without contrast. These were viewed on brain and bone windows. One or more of the following dose reduction techniques were utilized: Automated exposure control (AEC), Adjustment of mA and/or kV according to patient size, Use of iterative reconstruction technique such as ASiR, CT scan done according to ALARA and image gently/image wisely Findings: The brain parenchyma is normal in attenuation. No intra- or extra-axial mass or fluid collection. No acute hemorrhage. The ventricles are normal in size, shape, and morphology. The hathaway-white matter junction is normal. The subarachnoid cisterns are patent. The visualized paranasal sinuses are normal. The visualized portions of the orbits and globes are normal. The mastoid air cells are clear. The pocket builder topogram shows no lytic lesion or fracture. Impression: No acute intracranial process. Electronically signed by: Anusha Rios MD (08/14/2021 3:03 AM) [facility] DICTATED and SIGNED BY: ANUSHA RIOS MD DATE: 08/14/21 [id number] [] Course & Med Decision Making: Course & Med Decision Making Pertinent Labs and Imaging studies reviewed. (See chart for details) [] Dragon Disclaimer: Dragon Disclaimer: This electronic medical record was generated, in whole or in part, using a voice recognition dictation system. Departure Departure Impression: Primary Impression: Seizure Additional Impression: Hypertension Disposition: 01 HOME / SELF CARE / HOMELESS Condition: STABLE Referrals: DIGNA PAK MD, PRATIP B MD ZWIBELMAN, JAY S MD Patient Instructions: Seizure Disorder, Child, Generalized Tonic-Clonic Additional Instructions: Start taking her blood pressure medications today. Take the Keppra this evening. Refrain from activities that could be harmful if you were to have a seizure such as driving, taking a bath, or swimming alone. Scripts Metoprolol Succinate (METOPROLOL SUCCINATE ( XL )) 100 Mg Tab.er.24h 1 TAB PO DAILY, #30 TAB 0 Refills Prov: AIMEE SALDANA MD 08/14/21 Lisinopril (LISINOPRIL) 10 Mg Tablet 1 TAB PO DAILY for blood pressure, #30 TAB 0 Refills Prov: AIMEE SALDANA MD 08/14/21 Levetiracetam (KEPPRA) 500 Mg Tablet 1 TAB PO BID for seizures for 30 Days, #60 TAB 0 Refills Prov: AIMEE SALDANA MD 08/14/21 Problem Qualifiers AIMEE SALDANA MD Aug 14, 2021 02:50
[2021-08-14] MEDS ORDERED: IV NORMAL SALINE 1000ML BAG 1,000 ML IV ONE (03:00)
[2021-08-14 03:05] LABS: BASO # 0.1 x10^3/uL (0.0-0.2); BASO % 1 % (0-3); EOS # 0.1 x10^3/uL (0.0-0.7); EOS % 1 % (0-3); HEMATOCRIT 40.7 % (39.0-53.0); HEMOGLOBIN 13.8 g/dL (13.0-17.5); LYMPH # 0.5 x10^3/uL (1.0-4.8); LYMPH % 7 % (24-48); MEAN CORPUSCULAR HEMOGLOBIN 31 pg (25-35); MEAN CORPUSCULAR HGB CONC 34 g/dL (31-37); MEAN CORPUSCULAR VOLUME 90 fL (79-100); MONO # 0.6 x10^3/uL (0.0-1.1); MONO % 8 % (0-9); NEUT # 6.6 x10^3/uL (1.8-7.7); NEUT % 84 % (31-73); PLATELET COUNT 248 x10^3/uL (140-400); RED BLOOD COUNT 4.52 x10^6/uL (4.30-5.70); RED CELL DISTRIBUTION WIDTH 14.2 % (11.5-14.5); WHITE BLOOD COUNT 7.9 x10^3/uL (4.0-11.0)
--- NOTE | 2021-08-14 03:05 | RAD ---
CT HEAD/BRAIN WO Date: 08/14/2021 2:39 AM Clinical Indication: seizure Comparison: 06/27/2016. Technique: 5 mm axial tomographic images were obtained of the head without contrast. These were view ed on brain and bone windows. One or more of the following dose reduction techniques were utilized: A utomated exposure control (AEC), Adjustment of mA and/or kV according to patient size, Use of iterati ve reconstruction technique such as ASiR, CT scan done according to ALARA and image gently/image banda ly Findings: The brain parenchyma is normal in attenuation. No intra- or extra-axial mass or fluid collection. No acute hemorrhage. The ventricles are normal in size, shape, and morphology. The hathaway-white matter klaus ction is normal. The subarachnoid cisterns are patent. The visualized paranasal sinuses are normal. The visualized portions of the orbits and globes are no rmal. The mastoid air cells are clear. The concaving machine operator topogram shows no lytic lesion or fracture. Impression: No acute intracranial process. Electronically signed by: Singh Rios MD (08/14/2021 3:03 AM) [facility]
[2021-08-14 03:18] LABS: CALCIUM 8.2 mg/dL (8.5-10.1); CREATININE 1.3 mg/dL (0.7-1.3); GFR 61.5; POTASSIUM 3.6 mmol/L (3.5-5.1)
[2021-08-14 03:26] LABS: ALBUMIN 3.3 g/dL (3.4-5.0); ALBUMIN/GLOBULIN RATIO 0.8 (1.0-1.7); PHOSPHORUS 2.9 mg/dL (2.6-4.7); TOTAL BILIRUBIN 0.2 mg/dL (0.2-1.0); TOTAL PROTEIN 7.6 g/dL (6.4-8.2)
--- NOTE | 2021-08-14 03:44 | EKG ---
[facility] [address] [place] [address] Test Date: 2021-08-14 Test Time: 02:34:33 Pat Name: PATTIE RUGGIERO Department: Room: Gender: M Passenger Attendant: : 1980 Requested By: AIMEE SALDANA Order Number: [id number] Reading MD: Wesly Suggs Measurements Intervals [place] Rate: 108 P: -47 TX: 214 QRS: 8 QRSD: 92 T: 39 QT: 324 QTc: 438 Interpretive Statements SINUS TACHYCARDIA PROLONGED TX INTERVAL Electronically Signed On 08-14-2021 19:56:22 COMPUTER NETWORKER by Wesly Suggs
[2021-08-14] MEDS ORDERED: METO-247 PO (04:00)
[2021-08-14] MEDS ORDERED: LISI10TA16 PO (04:00)
[2021-08-14] MEDS ORDERED: LEVE500T56 PO (04:00)
[2021-08-14 04:30] VITALS: BP 149/97
[2021-08-14] MEDS ORDERED: levETIRAcetam 500 MG TABLET PO ONE (04:30)
== END 2021-08-14 04:30 | disposition home or self-care (01) ==
LOC: ER 01:55
DX: R56.9 Unspecified convulsions (principal); I10 Essential (primary) hypertension; Z87.891 Personal history of nicotine dependence; Z88.6 Allergy status to analgesic agent
CPT/HCPCS: 36415; 70450; 80053; 82550; 83735; 83874; 84100; 85025; 93005; 96360; 99285; G0480; J7030